=== PATIENT | female | born 1985 | race Caucasian/White ===

== ENCOUNTER 2018-01-26 23:39 | Emergency (ER) | payer SELFPAY ==
[2018-01-27 00:23] VITALS: BP 121/77; PULSE 60; TEMP 98.2; BMI 22.3
--- NOTE | 2018-01-27 01:09 | PDOC ---
History of Present Illness - General Chief Complaint: Ingrown toenail Stated Complaint: PAIN Time Seen by Provider: 01/27/18 00:11 History Source: Patient Exam Limitations: No Limitations - History of Present Illness Initial Comments: 01/27/18 01:03 32-year-old woman without significant past medical history who presents emergency Department with right great toe swelling for 7 days. Patient states atraumatic swelling of the cuticle of the right great toe for one week with pain developing over the past 2 days. Patient states the pain is currently intolerable after taking [id number] pain medication. Patient denies any fevers, chills, drainage, discharge. Past History - Past Medical History Allergies/Adverse Reactions: Allergies Allergy/AdvReac Type Severity Reaction Status Date / Time No Known Allergies Allergy Verified 01/26/18 23:51 Home Medications: Ambulatory Orders Pnv with Ca,No.71/Iron/FA [Prenaplus Tablet] 1 each PO DAILY 08/05/12 Acetaminophen [Tylenol .Regular Strength -] 650 mg PO Q4H PRN #0 tablet Ibuprofen [Motrin -] 600 mg PO Q4H PRN #0 tablet 08/10/12 Asthma: No Cancer: No Cardiac Disorders: No COPD: No Diabetes: No HTN: No Seizures: No Thyroid Disease: No - Immunization History Immunization Up to Date: Yes - Suicide/Smoking/Psychosocial Hx Smoking History: Never smoked Have you smoked in the past 12 months: No Information on smoking cessation initiated: No Hx Alcohol Use: No Drug/Substance Use Hx: No Substance Use Type: None Hx Substance Use Treatment: No Review of Systems - Review of Systems Able to Perform ROS?: Yes Is the patient limited Arabic proficient: No Constitutional: No: Symptoms Reported HEENTM: No: Symptoms Reported Respiratory: No: Symptoms reported Cardiac (ROS): No: Symptoms Reported ABD/GI: No: Symptoms Reported : No: Symptoms Reported Musculoskeletal: No: Symptoms Reported Integumentary: Yes: See HPI Neurological: No: Symptoms reported Endocrine: No: Symptoms Reported Hematologic/Lymphatic: No: Symptoms Reported *Physical Exam - Vital Signs Last Vital Signs Temp Pulse Resp BP Pulse Ox 98.2 F 60 20 121/77 99 01/26/18 23:52 01/26/18 23:52 01/26/18 23:52 01/26/18 23:52 01/26/18 23:52 - Physical Exam General Appearance: Yes: Appropriately Dressed. No: Apparent Distress Extremity: positive: Swelling (right great toe lateral cuticle). negative: Erythema Integumentary: positive: Normal Color, Dry, Warm Procedures - Consent Consent obtained: Verbal, From Patient - Additional Procedures Additional Procedures: other (right great toe lateral toenail avulsion) Medical Decision Making - Medical Decision Making 01/27/18 01:05 A/P: 32-year-old woman with ingrown toenail Right great toe lateral cuticle swelling with noted ingrown toenail Right great toe lateral toenail avulsion. Verbal consent obtained from patient. 4 mL 1% lidocaine without epi used to perform digital block of the right great toe. Right great toe lateral toenail avulsion performed. Patient tolerated procedure well. It has been discussed with patient the follow-up with podiatry for reevaluation of her wound within the next 3 days. Patient instructed to apply Betadine Water solution with a ratio of 1:1 daily with application of bacitracin to the wound. Was also discussed with patient to reevaluate footwear and to make sure that she has well fitting shoes on at all times. Discharge *DC/Admit/Observation/Transfer Diagnosis at time of Disposition: Onychocryptosis - Discharge Dispostion Disposition: HOME Condition at time of disposition: Stable Decision to Admit order: No - Referrals Referrals: Alexis Dunham MD [Staff Physician] - Washington Woo MD [Staff Physician] - - Patient Instructions Printed Discharge Instructions: DI for Ingrown Toenail Removal, DI for Ingrown Toenail Additional Instructions: You have been given a referral for aids counselor. Make an appointment for reevaluation in 3 days. If you are unable to secure an appointment with a aids counselor, return to emergency department for reevaluation in 3 days. Clean toe with a mixture of Betadine and tapwater daily. Apply bacitracin ointment to toe after cleaning. Return to emergency department for redness, swelling, worsening pain, fevers, or any other concerns. Print Language: BELGIAN - Post Discharge Activity
== END 2018-01-27 01:20 | disposition home or self-care (01) ==
LOC: JER 23:39
PROC: 0HBRXZZ Excision of Toe Nail, External Approach (ICD-10-PCS; principal; 2018-01-26)
DX: L60.0 Ingrowing nail (principal)
CPT/HCPCS: 99281-25

== ENCOUNTER 2020-11-30 15:13 | Emergency (ER) | payer SELFPAY ==
[2020-11-30 15:27] VITALS: TEMP 97.3; BMI 28.3
[2020-11-30] MEDS ORDERED: SODIUM CHLORIDE 0.9% 500 ML INFUS.BAG IV ONE (15:49)
[2020-11-30] MEDS ORDERED: METOCLOPRAMIDE HCL INJECTION 10 MG/2 ML VIAL IVPUSH ONE (15:49)
[2020-11-30] MEDS ORDERED: KETOROLAC TROMETHAMINE 30 MG/1 ML VIAL IVPUSH ONE (15:49)
[2020-11-30] MEDS ORDERED: METOCLOPRAMIDE HCL INJECTION 10 MG/2 ML VIAL ONE (16:23)
[2020-11-30] MEDS ORDERED: KETOROLAC TROMETHAMINE 30 MG/1 ML VIAL ONE (16:23)
[2020-11-30 18:14] LABS: EPI CELLS >36 /uL (0-25.1); HYALINE CASTS 0 /uL (0-3.1); PH,URINE 5.5 (5.0-8.0); URINE APPEARANCE CLOUDY; URINE BACTERIA 1878 /uL (0-1359); URINE BILIRUBIN NEGATIVE (NEGATIVE); URINE COLOR YELLOW; URINE GLUCOSE (UA) NEGATIVE (NEGATIVE); URINE KETONE NEGATIVE (NEGATIVE); URINE LEUK ESTERASE NEGATIVE (NEGATIVE); URINE NITRITE NEGATIVE (NEGATIVE); URINE PROTEIN NEGATIVE (NEGATIVE); URINE RBC 8 /uL (0-23.9); URINE UROBILINOGEN 0.2 mg/dL (0.2-1.0)
[2020-11-30 18:31] LABS: HCG,QUALITATIVE URINE Negative
[2020-11-30 18:49] VITALS: BP 126/78; PULSE 20
[2020-11-30 19:26] LABS: URINE WBC 59.7 /uL (0-25.8)
== END 2020-11-30 18:45 | disposition home or self-care (01) ==
LOC: JER 15:13
PROC: 3E0333Z Introduction of Anti-inflammatory into Peripheral Vein, Percutaneous Approach (ICD-10-PCS; principal; 2020-11-30)
PROC: 3E033GC Introduction of Other Therapeutic Substance into Peripheral Vein, Percutaneous Approach (ICD-10-PCS; 2020-11-30)
DX: R51.9 Headache, unspecified (principal)
CPT/HCPCS: 81003; 84703; 87086; 99284-25